=== PATIENT | male | born 1980 | race American Indian/Alaskan Native ===

== ENCOUNTER 2021-10-25 05:21 | Emergency (ER) | payer SELFPAY ==
[2021-10-25] MEDS ORDERED: ZIPRASIDONE MESYLATE 20 MG VIAL IM ONE ×2 (05:26)
--- NOTE | 2021-10-25 05:35 | Event Note ---
ED Screening Note Date of service: 10/25/21 Time: 05:33 ED Screening Note: Patient is a 41-year-old F Citizen Of [place] male who has a history of mental illness who was at a friend's house and feels "jumpy". Police were initially called and called paramedics for mental health crisis. Patient is seems very paranoid is even very reluctant to go into the room stating "I need a minute". Pacing in the hallway. Patient's endorses that he has been off of his psychiatric medications. Patient does not give a timeframe. This initial assessment/diagnostic orders/clinical plan/treatment(s) is/are subject to change based on patients health status, clinical progression and re- assessment by fellow clinical providers in the ED. Further treatment and workup at subsequent clinical providers discretion. Patient/guardian urged not to elope from the ED as their condition may be serious if not clinically assessed and managed. Initial orders include: Geodon 20 mg IM Labs ordered to medically clear him for psychiatric evaluation.
== END 2021-10-25 05:40 | disposition left against medical advice (07) ==
LOC: ED 05:21
DX: Z53.21 Procedure and treatment not carried out due to patient leaving prior to being seen by health care provider (principal)
CPT/HCPCS: J3486